=== PATIENT | female | born 1975 | race Caucasian/White ===

== ENCOUNTER 2022-06-29 19:53 | Emergency (ER) | payer MEDICARE ==
[~2022-06-29] VITALS: Ht 157.5 cm; Wt 72.0 kg
[2022-06-29 21:30] VITALS: BP 115/81
[2022-06-29 22:00] VITALS: BP 121/80
[2022-06-29 22:17] VITALS: BP 121/80
== END 2022-06-29 22:25 | disposition left against medical advice (07) ==
LOC: ED 19:53
DX: Z53.21 Procedure and treatment not carried out due to patient leaving prior to being seen by health care provider (principal)

== ENCOUNTER 2022-07-05 14:12 | Emergency (ER) | payer MEDICARE ==
[~2022-07-05] VITALS: Ht 157.5 cm; Wt 75.0 kg
== END 2022-07-05 14:57 | disposition home or self-care (01) ==
LOC: ED 14:12
DX: S63.502A Unspecified sprain of left wrist, initial encounter (principal); X58.XXXA Exposure to other specified factors, initial encounter